=== PATIENT | female | born 2000 | race American Indian/Alaskan Native ===

== ENCOUNTER 2021-05-30 12:10 | Emergency (ER) | payer MEDICAID ==
[2021-05-30 14:11] LABS: Basophils % (Auto) 0.2 % (0.0-1.8); Eosinophils # (Auto) 0.1 K/mm3 (0.0-0.4); Eosinophils % (Auto) 1.1 % (0.0-4.3); Hematocrit 37.8 % (30.3-42.9); Hemoglobin 12.9 gm/dl (10.1-14.3); Lymphocytes # (Auto) 1.5 K/mm3 (1.2-5.4); Lymphocytes % (Auto) 28.2 % (13.4-35.0); Mean Corpuscular HGB Conc 34 % (30-34); Mean Corpuscular Volume 87 fl (79-97); Monocytes # (Auto) 0.4 K/mm3 (0.0-0.8); Monocytes % (Auto) 7.1 % (0.0-7.3); Platelet Count 297 K/mm3 (140-440); Red Blood Count 4.33 M/mm3 (3.65-5.03)
--- NOTE | 2021-05-30 14:12 | Emergency Department Report ---
ED Female HPI - General Chief complaint: Abdominal Pain Stated complaint: 20WKS PAIN /CRAMPS Time Seen by Provider: 05/30/21 13:41 Source: patient, family Mode of arrival: Ambulatory Limitations: No Limitations - History of Present Illness Initial comments: The patient was evaluated in the emergency department for symptoms described in the history of present illness. He/she was evaluated in the context of the global COVID-19 pandemic, which necessitated consideration that the patient might be at risk for infection with the virus that causes COVID-19. Institutional protocols and algorithms that pertain to the evaluation of patients at risk for COVID-19 are in a state of rapid change based on information released by regulatory bodies including the CDC and federal and state organizations. These policies and algorithms were followed during the patient's care in the emergency department. Please note that these policies, procedures and recommendations changed on a rapid basis. 20-year-old -[place] female presents to the emergency room stating that she started having vaginal bleeding last night. Patient states she has not seen her period since February 04 after she had a D&C. Patient reports that she had a D&C in [place]. She she is currently on no control. She states she has not saturated any pads. She reports she is 4 para 1 with 3 miscarriages. Patient reports she has a 1-year-old at home. Complaint: vaginal bleeding, pelvic pain Onset/Timin -: days(s) Location: suprapubic Severity: mild Severity scale (0 -10): 4 Quality: aching Consistency: intermittent Improves with: none Worsens with: none Are you Now?: Yes Last Menstrual Period: 02/04/21 EDC: 11/11/21 Associated Symptoms: vaginal bleeding, abdominal pain. denies: nausea/vomiting, fever/chills - Related Data Sexually active: Yes : 4 Para: 1 Allergies Allergy/AdvReac Type Severity Reaction Status Date / Time No Known Allergies Allergy Verified 05/30/21 12:49 ED Review of Systems ROS: Stated complaint: 20WKS PAIN /CRAMPS Other details as noted in HPI Comment: All other systems reviewed and negative ED Past Medical Hx - Past Medical History Previous Medical History?: No - Surgical History Past Surgical History?: Yes Additional Surgical History: D and C 02/05 ED Physical Exam - General Limitations: No Limitations General appearance: alert, in no apparent distress - Head Head exam: Present: atraumatic, normocephalic - Eye Eye exam: Present: normal appearance - ENT ENT exam: Present: mucous membranes moist - Neck Neck exam: Present: normal inspection, full ROM - Respiratory Respiratory exam: Present: normal lung sounds bilaterally. Absent: chest wall tenderness - Cardiovascular Cardiovascular Exam: Present: regular rate, normal rhythm. Absent: systolic murmur, diastolic murmur, rubs, gallop - GI/Abdominal GI/Abdominal exam: Present: soft, tenderness (With deep palpation). Absent: distended - Extremities Exam Extremities exam: Present: normal inspection - Back Exam Back exam: Present: normal inspection - Neurological Exam Neurological exam: Present: alert, oriented X3, normal gait - Psychiatric Psychiatric exam: Present: normal affect, normal mood - Skin Skin exam: Present: warm, dry, intact, normal color. Absent: rash ED Course Vital Signs 05/30/21 12:49 Temperature 98.6 F Pulse Rate 68 Respiratory 16 Rate Blood Pressure 123/71 [Left] O2 Sat by Pulse 99 Oximetry - Consultations Consultation #1: 05/30/21 15:[address] Nguyen called to say concern for adnexal abnormality. Concern for ectopic . Consultation #2: 05/30/21 17:[address] Saint Patel CHIEF MEDICAL DIRECTOR from [facility]. She recommends serial hCG on Tuesday at her office or the emergency room. And possible repeat of ultrasound. Saint Patel states she is not totally convinced that it is that ectopic at this time. Patient can take Tylenol for pain. ED Medical Decision Making - Lab Data Result diagrams: 05/30/21 13:49 05/30/21 13:49 Laboratory Tests 05/30/21 05/30/21 05/30/21 13:49 13:49 13:49 WBC 5.4 RBC 4.33 Hgb 12.9 Hct 37.8 MCV 87 MCH 30 MCHC 34 RDW 15.0 Plt Count 297 Lymph % (Auto) 28.2 [place] % (Auto) 7.1 Eos % (Auto) 1.1 Baso % (Auto) 0.2 Lymph # (Auto) 1.5 [place] # (Auto) 0.4 Eos # (Auto) 0.1 Baso # (Auto) 0.0 Seg Neutrophils % 63.4 Seg Neutrophils # 3.4 Sodium 139 Potassium 3.7 Chloride 104.3 Carbon Dioxide 22 Anion Gap 16 BUN 5 L Creatinine 0.5 L Estimated GFR > 60 BUN/Creatinine Ratio 10 Glucose 92 Calcium 9.4 HCG, Quant 318.6 H Urine Color Urine Turbidity Urine pH Ur Specific [place] Urine Protein Urine Glucose (UA) Urine Ketones Urine Blood Urine Nitrite Urine Bilirubin Urine Urobilinogen Ur Leukocyte Esterase Urine WBC (Auto) Urine RBC (Auto) U Epithel Cells (Auto) Urine Mucus Blood Type Ord Rhogam Gestat Weeks 05/30/21 05/30/21 13:49 Unknown WBC RBC Hgb Hct MCV MCH MCHC RDW Plt Count Lymph % (Auto) [place] % (Auto) Eos % (Auto) Baso % (Auto) Lymph # (Auto) [place] # (Auto) Eos # (Auto) Baso # (Auto) Seg Neutrophils % Seg Neutrophils # Sodium Potassium Chloride Carbon Dioxide Anion Gap BUN Creatinine Estimated GFR BUN/Creatinine Ratio Glucose Calcium HCG, Quant Urine Color Yellow Urine Turbidity Clear Urine pH 7.0 Ur Specific [place] 1.023 Urine Protein 100 mg/dl Urine Glucose (UA) Neg Urine Ketones Neg Urine Blood Lg Urine Nitrite Neg Urine Bilirubin Neg Urine Urobilinogen 2.0 Ur Leukocyte Esterase Neg Urine WBC (Auto) 5.0 Urine RBC (Auto) > 182.0 U Epithel Cells (Auto) 3.0 Urine Mucus 3+ Blood Type A POSITIVE Ord Rhog Gestat pos - Radiology Data [facility] [address] [place] [address] Ultrasound Report Signed Patient: KING ADAMSON MR#: [id number] : 2000 Acct:[id number] Age/Sex: 20 / F ADM Date: 05/30/21 Loc: ED Attending Dr: Ordering Physician: KRISTEN GRIGGS Date of Service: 05/30/21 Procedure(s): US OB <= 14 weeks fetus Accession Number(s): [id number] cc: KRISTEN GRIGGS Pelvic Ultrasound HISTORY: Amenorrhea since January. TECHNIQUE: Grayscale and color imaging performed. COMPARISON: None FINDINGS: Transabdominal and endovaginal imaging was performed. Uterus measures 9.6 x 4.7 x 5.0 cm and appears unremarkable. Endometrial echo complex measures 5 mm. There is preserved ovarian blood flow bilaterally. In the region of the right ovary, there is a rounded structure with thick wall and central anechoic area measuring 1.3 cm in maximal dimension there is blood flow within the thickened wall of this finding. No pelvic free fluid identified. IMPRESSION: 1. Structure in the region of the right ovary as outlined above. Differential considerations include an ectopic versus prominent functional cyst with the former favored. Correlate with beta hCG level. No internal pole or yolk sac identified. No free fl uid. 2. Otherwise unremarkable exam. COMMUNICATION: Time of Communication (FLUX CORE WELDER/CDT): 2:17 pm Licensed Practitioner Receiving Report: KRISTEN Willson Signer Name: Drake Baldwin MD Signed: 05/30/2021 3:19 PM Workstation Name: [id number] Transcribed By: OCTAVIO Dictated By: Drake Baldwin MD Electronically Authenticated By: Drake Baldwin MD Signed Date/Time: 05/30/211518 DD/ 12 TD/TT: Print Cancel - Medical Decision Making 20-year-old -[place] female presents to the emergency room stating that she started having vaginal bleeding last night. Patient states she has not seen her period since February 04 after she had a D&C. Patient reports that she had a D&C in [place]. She she is currently on no control. She states she has not saturated any pads. She reports she is 4 para 1 with 3 miscarriages. Patient reports she has a 1-year-old at home. CBC, BMP, ED RhoGam, HC G serum urinalysis ultrasound has been ordered Ultrasound shows a right-sided adnexal pain with no free fluid. Concerning for ectopic . Patient was given morphine for pain management IM. Discussed case with Dr. Spencer follow-up in her clinic on Tuesday to have a repeat hCG and possible ultrasound. Discussed with patient that she needs to follow-up with CHIEF MEDICAL DIRECTOR or return back to the emergency room to have her blood and possible ultrasound done. Patient can take Tylenol for pain management. Patient verbalized understanding. Critical care attestation.: If time is entered above; I have spent that time in minutes in the direct care of this critically ill patient, excluding procedure time. ED Disposition Clinical Impression: Threatened miscarriage Disposition: HOME / SELF CARE / HOMELESS Is pt being admited?: No Does the pt Need Aspirin: No Condition: Stable Instructions: Abdominal Pain (ED), Threatened Miscarriage Additional Instructions: Please follow-up on Tuesday to have a repeat hCG and possible ultrasound. Please refrain from any exercising intercourse or strenuous activity. You need to be on pelvic rest at this time. Tylenol for pain management. Referrals: PRIMARY CARE, [Primary Care Provider] - 3-5 Days [facility] [Provider Group] - 3-5 Days Forms: Work/School Release Form(ED) Time of Disposition: 17:07
[2021-05-30 14:21] LABS: Bilirubin,Urine NEG (Negative); Blood,Urine LG (Negative); Color,Urine Yellow (Yellow); Mucus,Urine 3+ /HPF
[2021-05-30 14:24] LABS: RBC,Urine > 182.0 /HPF (0.0-6.0)
[2021-05-30 14:37] LABS: Blood Urea Nitrogen 5 mg/dL (7-17); Calcium 9.4 mg/dL (8.4-10.2); Hemolysis Index 6
[2021-05-30 14:40] LABS: BUN/Creatinine Ratio 10
--- NOTE | 2021-05-30 15:24 | Ultrasound Report ---
Pelvic Ultrasound HISTORY: Amenorrhea since January. TECHNIQUE: Grayscale and color imaging performed. COMPARISON: None FINDINGS: Transabdominal and endovaginal imaging was performed. Uterus measures 9.6 x 4.7 x 5.0 cm and appears unremarkable. Endometrial echo complex measures 5 mm. There is preserved ovarian blood flow bilaterally. In the region of the right ovary, there is a round ed structure with thick wall and central anechoic area measuring 1.3 cm in maximal dimension there is blood flow within the thickened wall of this finding. No pelvic free fluid identified. IMPRESSION: 1. Structure in the region of the right ovary as outlined above. Differential considerations include an ectopic versus prominent functional cyst with the former favored. Correlate with beta hC G level. No internal pole or yolk sac identified. No free fluid. 2. Otherwise unremarkable exam. COMMUNICATION: Time of Communication (DOUBLER HELPER/CDT): 2:17 pm Licensed Practitioner Receiving Report: KRISTEN Willson Signer Name: Drake Baldwin MD Signed: 05/30/2021 3:19 PM Workstation Name: [employer]
--- NOTE | 2021-05-30 15:24 | Ultrasound Report ---
Pelvic Ultrasound HISTORY: Amenorrhea since January. TECHNIQUE: Grayscale and color imaging performed. COMPARISON: None FINDINGS: Transabdominal and endovaginal imaging was performed. Uterus measures 9.6 x 4.7 x 5.0 cm and appears unremarkable. Endometrial echo complex measures 5 mm. There is preserved ovarian blood flow bilaterally. In the region of the right ovary, there is a round ed structure with thick wall and central anechoic area measuring 1.3 cm in maximal dimension there is blood flow within the thickened wall of this finding. No pelvic free fluid identified. IMPRESSION: 1. Structure in the region of the right ovary as outlined above. Differential considerations include an ectopic versus prominent functional cyst with the former favored. Correlate with beta hC G level. No internal pole or yolk sac identified. No free fluid. 2. Otherwise unremarkable exam. COMMUNICATION: Time of Communication (JAVA DEVELOPMENT MANAGER/CDT): 2:17 pm Licensed Practitioner Receiving Report: KRISTEN Willson Signer Name: Drake Baldwin MD Signed: 05/30/2021 3:19 PM Workstation Name: [employer]
[2021-05-30] MEDS ORDERED: MORPHINE 4 MG/1 ML INJ IM ONE (16:14)
[2021-05-30 17:13] VITALS: BP 124/84
== END 2021-05-30 17:13 | disposition home or self-care (01) ==
LOC: ED 12:10
DX: O20.0 Threatened abortion (principal)
CPT/HCPCS: 36415; 76801; 76817; 80048; 81001; 84702; 85025; 86900; 86901; 99284